=== PATIENT | female | born 1975 | race Caucasian/White ===

== ENCOUNTER 2017-12-18 19:36 | Emergency (ER) | END 2017-12-19 00:56 | disposition home or self-care (01) ==

== ENCOUNTER 2018-04-14 19:12 | Outpatient (CLI) | END 2018-04-14 22:00 | disposition home or self-care (01) ==

== ENCOUNTER 2018-05-16 07:37 | Outpatient (CLI) | END 2018-05-16 11:20 | disposition home or self-care (01) ==

== ENCOUNTER 2018-05-23 03:36 | Inpatient (IN) | END 2018-05-26 16:30 | disposition home or self-care (01) | DRG 766 ==